=== PATIENT | male | born 1975 | race Caucasian/White ===

== ENCOUNTER 2021-11-02 15:38 | Observation (INO) | payer SELFPAY ==
[2021-11-02] MEDS ORDERED: Ondansetron 4 MG Tab.DIS PO ONE (16:19)
[2021-11-02] MEDS ORDERED: Ondansetron 4 MG Tab.DIS ONE (16:21)
[2021-11-02] MEDS ORDERED: HYDROmorphone 2 MG/ML SDV IVPUSH ONE (17:02)
[2021-11-02] MEDS ORDERED: Ondansetron 4 MG/2 ML SDV IVPUSH ONE (17:03)
[2021-11-02] MEDS ORDERED: Sodium Chloride 0.9% 1,000 ML IV ONE (17:03)
[2021-11-02] MEDS ORDERED: HYDROmorphone 2 MG/ML SDV ONE (17:21)
[2021-11-02] MEDS ORDERED: Ondansetron 4 MG/2 ML SDV ONE (17:21)
[2021-11-02] MEDS ORDERED: NS + KCl 20mEq/L 1,000 ML IV SCH (18:15)
[2021-11-02] MEDS ORDERED: Ketorolac 30 MG/ML SDV IVPUSH ONE (18:16)
[2021-11-02] MEDS ORDERED: GI Cocktail Oral Solution 30 ML PO ONE (18:16)
[2021-11-02] MEDS ORDERED: Ketorolac 30 MG/ML SDV ONE (18:31)
[2021-11-02] MEDS ORDERED: NS + KCl 20mEq/L 1,000 ML ONE (18:37)
[2021-11-02] MEDS ORDERED: Pantoprazole 40 MG Vial IVPUSH ONE (22:59)
[2021-11-02] MEDS ORDERED: Ketorolac 60 MG/2 ML SDV IVPUSH PRN (23:28)
[2021-11-02] MEDS ORDERED: Promethazine 12.5 MG in Sodium Chloride 0.9% 50 ML IV PRN (23:28)
[2021-11-02] MEDS: Lactated Ringers 1,000 ML IV SCH (23:35)
[2021-11-03] MEDS: Lactated Ringers 1,000 ML IV SCH (04:01)
[2021-11-03] MEDS ORDERED: Pantoprazole 40 MG Vial IVPUSH ONE (10:19)
== END 2021-11-03 11:27 | disposition home or self-care (01) ==
LOC: LB.ED 15:38 → LB.MS 23:26 → UNDOADMOB 23:28 → LB.ED 23:28
PROVIDERS: ADMIT Physician Assistant; ATTEND Physician Assistant
DX: R11.2 Nausea with vomiting, unspecified (principal); R10.9 Unspecified abdominal pain; Z20.822 Contact with and (suspected) exposure to COVID-19
CPT/HCPCS: 36415; 74176; 80048; 80053; 81001; 83690; 85025; 87804; 87804-59; 96374; 96375; 96376; 99285-25; A9270-GY; C9113; G0378; J1170; J1885; J2405; J3480; J7030; J7120; U0002

== ENCOUNTER 2021-12-14 12:42 | Emergency (ER) | payer SELFPAY ==
[2021-12-14] MEDS: Ketorolac 30 MG/ML SDV IVPUSH ONE (13:16)
[2021-12-14] MEDS: Ondansetron 4 MG/2 ML SDV IVPUSH ONE (13:16)
[2021-12-14] MEDS: Sodium Chloride 0.9% 1,000 ML IV ONE (13:18)
[2021-12-14] MEDS: Pantoprazole 80 MG in Sodium Chloride 0.9% 100 ML IV ONE (13:25)
[2021-12-14] MEDS: Ketorolac 30 MG/ML SDV ONE (13:26)
[2021-12-14] MEDS: Ondansetron 4 MG/2 ML SDV ONE (13:26)
[2021-12-14] MEDS: Pantoprazole 40 MG Vial ONE (13:26)
[2021-12-14] MEDS ORDERED: Sodium Chloride 0.9% 50 ML SDV FLUSH ONE (13:28)
[2021-12-14] MEDS ORDERED: Iopamidol 612 MG/ML 100 ML Bottle IV SCH (13:30)
[2021-12-14] MEDS ORDERED: Sodium Chloride 0.9% 10 ML Syringe FLUSH PRN (13:39)
[2021-12-14] MEDS ORDERED: Diatrizoate Meglumine/Diatrizoate Sodium 37% 30 ML Bottle PO SCH (13:45)
[2021-12-14] MEDS: Sodium Chloride 0.9% 1,000 ML IV SCH (14:35)
[2021-12-14] MEDS: Potassium Chloride 20 MEQ Tab.ER PO ONE (14:49)
== END 2021-12-14 15:14 | disposition home or self-care (01) ==
LOC: LB.ED 12:42
DX: K86.0 Alcohol-induced chronic pancreatitis (principal); K29.80 Duodenitis without bleeding; E87.6 Hypokalemia; Z72.0 Tobacco use
CPT/HCPCS: 36415; 74177; 80053; 83690; 85025; 96365; 96375; 99284-25; A9270-GY; C9113; J1885; J2405; J7030; J7040; Q9963

== ENCOUNTER 2025-04-15 13:40 | Emergency (ER) | payer SELFPAY ==
[2025-04-15] MEDS: Sodium Chloride 0.9% 1,000 ML IV SCH ×2 (14:17→15:19)
[2025-04-15] MEDS: Ondansetron 4 MG/2 ML SDV IVPUSH ONE (14:19)
[2025-04-15] MEDS: Sodium Chloride 0.9% 10 ML Syringe FLUSH PRN (14:21)
[2025-04-15 14:45] LABS: APPEARANCE,URINE CLEAR (CLEAR); BILIRUBIN,URINE NEGATIVE (NEGATIVE); GLUCOSE,URINE NEGATIVE (NEGATIVE); KETONES,URINE 15 mg/dL (NEGATIVE); LEUKOCYTE ESTERASE,URINE TRACE (NEGATIVE); NITRITE,URINE NEGATIVE (NEGATIVE); OCCULT BLOOD,URINE NEGATIVE (NEGATIVE); PROTEIN,URINE 30 mg/dL (NEGATIVE)
[2025-04-15 14:55] LABS: COLOR,URINE OTHER
[2025-04-15 15:02] LABS: BASOPHILS ABSOLUTE AUTO 0.03 K/uL (0.02-0.10); BASOPHILS PERCENT AUTO 0.4 % (0.0-0.5); EOSINOPHILS ABSOLUTE AUTO 0.06 K/uL (0.04-0.40); EOSINOPHILS PERCENT AUTO 0.8 % (1.0-5.0); HEMATOCRIT 44.6 % (40.0-54.0); HEMOGLOBIN 15.6 g/dL (13.0-18.0); LYMPHOCYTES ABSOLUTE AUTO 2.19 K/uL (1.50-4.00); LYMPHOCYTES PERCENT AUTO 28.4 % (20.0-40.0); MEAN CORPUSCULAR HEMOGLOBIN 34.9 pg (27.0-32.0); MEAN CORPUSCULAR VOLUME 100 fL (76-96); MEAN PLATELET VOLUME 11.6 fL (6.0-10.0); MONOCYTES ABSOLUTE AUTO 0.84 K/uL (0.20-0.80); MONOCYTES PERCENT AUTO 10.9 % (3.0-10.0); NEUTROPHILS ABSOLUTE AUTO 4.58 K/uL (2.00-7.50); NEUTROPHILS PERCENT AUTO 59.5 % (45.0-70.0); PLATELET COUNT,PLT 91 K/uL (150-400); RED BLOOD CELL COUNT 4.47 M/uL (4.50-6.50); RED CELL DISTRIBUTION WIDTH 12.5 % (11.0-16.0); WHITE BLOOD CELL COUNT,WBC 7.7 K/uL (4.0-11.0)
[2025-04-15 15:08] LABS: RBC,URINE 0-5 /HPF; WBC,URINE 20-30 /HPF
[2025-04-15 15:09] LABS: AMORPHOUS SEDIMENT,URINE OCCASIONAL /HPF; MUCUS,URINE MODERATE /HPF; WBC CLUMPS,URINE RARE /HPF
[2025-04-15 15:11] LABS: A/G RATIO 0.9 (0.8-2.0); ALBUMIN 3.4 g/dL (3.4-5.0); ANION GAP 10.2 mmol/L (5.0-15.0); BUN/CREATININE RATIO 7.8 (6-25); CALCIUM 8.6 mg/dL (8.5-10.1); CARBON DIOXIDE,CO2 30.1 mmol/L (21.0-32.0); CREATININE 0.77 mg/dL (0.70-1.30); EST CRCL DRUG DOSING (CG) 124.57 mL/min; POTASSIUM,K 3.3 mmol/L (3.5-5.1); PROTEIN TOTAL,TP 7.4 g/dL (6.4-8.2)
[2025-04-15] MEDS: Iopamidol 612 MG/ML 100 ML Bottle IV SCH (15:36)
[2025-04-15] MEDS: Sodium Chloride 0.9% 50 ML SDV FLUSH ONE (15:36)
[2025-04-15] MEDS: Ketorolac 15 MG/ML SDV IVPUSH ONE (15:44)
[2025-04-15 15:50] VITALS: BP 156/94; PULSE 90
[2025-04-15] MEDS ORDERED: Sulfamethoxazole/Trimethoprim 800-160 MG Tab ONE (17:00)
[2025-04-15] MEDS: Ondansetron 4 MG Tab.DIS PO ONE (17:57)
== END 2025-04-15 17:52 | disposition home or self-care (01) ==
LOC: LB.ED 13:40
DX: R10.9 Unspecified abdominal pain (principal); F17.200 Nicotine dependence, unspecified, uncomplicated
CPT/HCPCS: 36415; 74177; 80053; 81001; 83690; 85025; 87086; 96361; 96374; 96375; 99284; 99284-25; A9270-GY; J1885; J2405; J7030; Q0162; Q9967

== ENCOUNTER 2025-06-22 09:57 | Inpatient (IN) | payer SELFPAY ==
[2025-06-22] MEDS ORDERED: Sodium Chloride 0.9% 10 ML Syringe FLUSH PRN (10:30)
[2025-06-22] MEDS: Ondansetron 4 MG/2 ML SDV IVPUSH ONE (10:36)
[2025-06-22] MEDS: LORazepam 2 MG/ML SDV IVPUSH ONE (10:39)
[2025-06-22 11:03] LABS: BASOPHILS ABSOLUTE AUTO 0.04 K/uL (0.02-0.10); BASOPHILS PERCENT AUTO 0.4 % (0.0-0.5); EOSINOPHILS ABSOLUTE AUTO 0.06 K/uL (0.04-0.40); EOSINOPHILS PERCENT AUTO 0.6 % (1.0-5.0); LYMPHOCYTES ABSOLUTE AUTO 1.81 K/uL (1.50-4.00); LYMPHOCYTES PERCENT AUTO 18.5 % (20.0-40.0); MEAN PLATELET VOLUME 11.8 fL (6.0-10.0); MONOCYTES ABSOLUTE AUTO 0.88 K/uL (0.20-0.80); MONOCYTES PERCENT AUTO 9.0 % (3.0-10.0); NEUTROPHILS ABSOLUTE AUTO 7.01 K/uL (2.00-7.50); NEUTROPHILS PERCENT AUTO 71.5 % (45.0-70.0); PLATELET COUNT,PLT 133 K/uL (150-400); RED BLOOD CELL COUNT 5.20 M/uL (4.50-6.50); RED CELL DISTRIBUTION WIDTH 12.7 % (11.0-16.0); WHITE BLOOD CELL COUNT,WBC 9.8 K/uL (4.0-11.0)
[2025-06-22 11:04] LABS: APPEARANCE,URINE CLEAR (CLEAR); GLUCOSE,URINE NEGATIVE (NEGATIVE); OCCULT BLOOD,URINE MODERATE (NEGATIVE)
[2025-06-22 11:10] LABS: A/G RATIO 0.8 (0.8-2.0); ALANINE AMINOTRANSFERASE,ALT 63.0 U/L (12-78); ASPARTATE AMNIOTRANSFERASE,AST 82.0 U/L (15-37); BILIRUBIN TOTAL 1.7 mg/dL (0.0-1.0); BLOOD UREA NITROGEN,BUN 6.0 mg/dL (8-26); CARBON DIOXIDE,CO2 28.2 mmol/L (21.0-32.0); CHLORIDE,CL 98.0 mmol/L (98-107); CREATININE 0.96 mg/dL (0.70-1.30); EST CRCL DRUG DOSING (CG) 99.92 mL/min; ESTIMATED GFR 96.0 mL/min (>60); GLUCOSE RANDOM 169.0 mg/dL (74-100); POTASSIUM,K 3.1 mmol/L (3.5-5.1); PROTEIN TOTAL,TP 8.9 g/dL (6.4-8.2); SODIUM,NA 139.0 mmol/L (136-145)
[2025-06-22 11:16] LABS: ETHANOL BLOOD MEDICAL < 3.0 mg/dL (<3.0)
[2025-06-22] MEDS: Labetalol 100 MG/20 ML MDV IVPUSH ONE ×2 (12:12→14:20)
[2025-06-22] MEDS: Magnesium Sulfat/D5W 1GM/100ML 1 GM in Premix Bag 1 BAG IV ONE ×2 (12:46→14:01)
[2025-06-22] MEDS: GI Cocktail Oral Solution 30 ML PO ONE (14:06)
[2025-06-22 14:38] LABS: BLOOD UREA NITROGEN,BUN 6 mg/dL (8-26); CARBON DIOXIDE,CO2 27.0 mmol/L (21.0-32.0); CHLORIDE,CL 103 mmol/L (98-107); CREATININE 0.81 mg/dL (0.70-1.30); EST CRCL DRUG DOSING (CG) 118.42 mL/min; ESTIMATED GFR 107 mL/min (>60); GLUCOSE RANDOM 139 mg/dL (74-100); POTASSIUM,K 3.1 mmol/L (3.5-5.1); SODIUM,NA 141 mmol/L (136-145)
[2025-06-22] MEDS: Potassium Chloride 20 MEQ Tab.ER PO SCH (15:51)
[2025-06-22] MEDS: Ondansetron 4 MG Tab.DIS PO ONE (16:46)
[2025-06-22] MEDS: Potassium Chloride 10% 20 MEQ/15 ML Soln 15 ML UD Cup PO SCH (16:48)
[2025-06-22] MEDS: LORazepam 2 MG/ML SDV IV PRN (17:22)
[2025-06-23] MEDS: Ondansetron 4 MG Tab.DIS PO PRN (07:44)
[2025-06-23 08:20] LABS: BLOOD UREA NITROGEN,BUN 8.0 mg/dL (8-26); CARBON DIOXIDE,CO2 26.4 mmol/L (21.0-32.0); CHLORIDE,CL 102.0 mmol/L (98-107); CREATININE 0.81 mg/dL (0.70-1.30); EST CRCL DRUG DOSING (CG) 118.42 mL/min; ESTIMATED GFR 107.0 mL/min (>60); GLUCOSE RANDOM 112.0 mg/dL (74-100); POTASSIUM,K 3.6 mmol/L (3.5-5.1); SODIUM,NA 138.0 mmol/L (136-145)
[2025-06-23 11:18] LABS: MEAN PLATELET VOLUME 13.0 fL (6.0-10.0); PLATELET COUNT,PLT 83.0 K/uL (150-400); RED BLOOD CELL COUNT 4.14 M/uL (4.50-6.50); RED CELL DISTRIBUTION WIDTH 12.7 % (11.0-16.0); WHITE BLOOD CELL COUNT,WBC 5.8 K/uL (4.0-11.0)
== END 2025-06-23 12:22 | disposition home or self-care (01) | DRG 641 ==
LOC: LB.ED 09:57 → LB.MS 15:12 → UNDOADMIN 15:15 → LB.MS 15:15
PROVIDERS: ADMIT Surgery; ATTEND Surgery
DX: E87.6 Hypokalemia (principal); F10.230 Alcohol dependence with withdrawal, uncomplicated; E86.0 Dehydration; R10.9 Unspecified abdominal pain; E83.42 Hypomagnesemia; Z66 Do not resuscitate; R31.29 Other microscopic hematuria; I10 Essential (primary) hypertension; R59.0 Localized enlarged lymph nodes; H54.7 Unspecified visual loss; G47.30 Sleep apnea, unspecified; K21.9 Gastro-esophageal reflux disease without esophagitis; K80.20 Calculus of gallbladder without cholecystitis without obstruction; N20.0 Calculus of kidney; F41.9 Anxiety disorder, unspecified; F90.9 Attention-deficit hyperactivity disorder, unspecified type; Z90.49 Acquired absence of other specified parts of digestive tract; Z79.899 Other long term (current) drug therapy
CPT/HCPCS: 36415; 74176; 80048; 80053; 80307; 81001; 83690; 83735; 85025; 85027; 86140; 96361; 96365; 96366; 96367; 96375; 96376; 99223; 99239; 99285-25; A9270-GY; G0103; J1920; J2060; J2270; J2405; J2470; J3475; J3480; J7030; Q0162